=== PATIENT | female | born 1960 | race Caucasian/White ===

== ENCOUNTER 2017-06-07 20:00 | Outpatient (CLI) | payer BC | END 2017-06-07 20:01 | disposition home or self-care (01) | LOC: SLEEPLAB 20:00 | PROVIDERS: ATTEND Family Medicine | DX: G47.33 Obstructive sleep apnea (adult) (pediatric) (principal); E66.9 Obesity, unspecified | CPT/HCPCS: 95806 ==

== ENCOUNTER 2019-11-21 12:32 | Outpatient (CLI) | payer BC ==
--- NOTE | 2019-11-21 14:04 | RAD ---
LEFT ANKLE 3 VIEWS: Date: 11/21/2019 HISTORY: Pain in left lower leg and left ankle. FINDINGS/IMPRESSION: Soft tissue swelling is present. There are postop changes and metallic hardware in the distal tibia a nd fibula, in good position and alignment. No acute fracture or dislocation seen. Degenerative change s are present. A plantar calcaneal spur is noted. POS: [facility]
--- NOTE | 2019-11-21 14:05 | RAD ---
LEFT TIBIA AND FIBULA 2 VIEWS: Date: 11/21/2019 HISTORY: Left lower extremity pain. FINDINGS: Knee prosthesis is noted. Components appear adequately positioned and alignment. No evidence of loose douglas. There is a cortical fracture involving the proximal diaphysis of the left fibula without displacement . Prior internal fixation of the distal tibia and fibula. Plate and screws transfix the distal fibula a t the lateral malleolus. Pins transfix the medial malleolus. Degenerative changes at the ankle are pr ominent. IMPRESSION: 1. Evidence of acute fracture involving the proximal diaphysis of the left fibula. 2. Postoperative changes of the tibia and fibula as described. Dr. Pollard is being paged for notification of this finding. CODE CR.
== END 2019-11-21 12:33 | disposition home or self-care (01) ==
LOC: SCSRAD 12:32
PROVIDERS: ATTEND Family Medicine
DX: M79.622 Pain in left upper arm (principal); S89.202A Unspecified physeal fracture of upper end of left fibula, initial encounter for closed fracture; Z98.890 Other specified postprocedural states; M79.89 Other specified soft tissue disorders; M19.072 Primary osteoarthritis, left ankle and foot; M77.32 Calcaneal spur, left foot

== ENCOUNTER 2020-12-13 05:50 | Day surgery (SDC) | payer BC ==
[2020-12-12 10:58] VITALS: BMI 46.3
[2020-12-13] MEDS ORDERED: Lidocaine 1% PF 5 ML VIAL ONE (08:29)
[2020-12-13] MEDS ORDERED: PROPOFOL 200 MG/20 ML VIAL ONE (08:29)
== END 2020-12-13 09:50 | disposition home or self-care (01) ==
LOC: SDC 05:50
PROVIDERS: ATTEND Internal Medicine Gastroenterology
PROC: 0DBK8ZX Excision of Ascending Colon, Via Natural or Artificial Opening Endoscopic, Diagnostic (ICD-10-PCS; principal; 2020-12-13)
PROC: 0DBP8ZX Excision of Rectum, Via Natural or Artificial Opening Endoscopic, Diagnostic (ICD-10-PCS; principal; 2020-12-13)
PROC: 0DBN8ZX Excision of Sigmoid Colon, Via Natural or Artificial Opening Endoscopic, Diagnostic (ICD-10-PCS; principal; 2020-12-13)
DX: Z12.11 Encounter for screening for malignant neoplasm of colon (principal); D12.2 Benign neoplasm of ascending colon; D12.5 Benign neoplasm of sigmoid colon; K62.1 Rectal polyp; I10 Essential (primary) hypertension; F17.210 Nicotine dependence, cigarettes, uncomplicated; E66.9 Obesity, unspecified; Z68.42 Body mass index [BMI] 45.0-49.9, adult; Z90.49 Acquired absence of other specified parts of digestive tract; Z79.899 Other long term (current) drug therapy; Z87.19 Personal history of other diseases of the digestive system
CPT/HCPCS: 88305; J2704

== ENCOUNTER 2022-02-26 13:29 | Outpatient (CLI) | payer BC | END 2022-02-26 13:30 | disposition home or self-care (01) | LOC: SCSMRI 13:29 | PROVIDERS: ATTEND Family Medicine | DX: M47.26 Other spondylosis with radiculopathy, lumbar region (principal); M47.817 Spondylosis without myelopathy or radiculopathy, lumbosacral region; M47.814 Spondylosis without myelopathy or radiculopathy, thoracic region; M54.50 Low back pain, unspecified; M47.22 Other spondylosis with radiculopathy, cervical region; M47.813 Spondylosis without myelopathy or radiculopathy, cervicothoracic region; E04.2 Nontoxic multinodular goiter | CPT/HCPCS: 72141; 72148 ==

== ENCOUNTER → 2022-05-12 | Day surgery (SDC) | payer BC ==
[2022-05-11 10:54] VITALS: BMI 46.3
[~2022-05-12] MED LIST: Lidocaine 2% PF 5 ML VIAL ONE; Sodium Bicarbonate 2.5 MEQ/5 ML VIAL ONE
[2022-05-12 13:10] VITALS: BP 149/81; TEMP 98.6
== END | disposition home or self-care (01) ==
LOC: ULT 12:22
PROVIDERS: ATTEND Specialist
PROC: 0G9G3ZX Drainage of Left Thyroid Gland Lobe, Percutaneous Approach, Diagnostic (ICD-10-PCS; principal; 2022-05-12)
DX: E04.1 Nontoxic single thyroid nodule (principal); I10 Essential (primary) hypertension; M19.90 Unspecified osteoarthritis, unspecified site; F17.200 Nicotine dependence, unspecified, uncomplicated; Z79.899 Other long term (current) drug therapy
CPT/HCPCS: 10005; 88173; J2001

== ENCOUNTER 2023-08-13 09:08 | Outpatient (CLI) | payer BC | END 2023-08-13 09:09 | disposition home or self-care (01) | LOC: SCSRAD 09:08 | PROVIDERS: ATTEND Family Medicine | DX: R05.3 Chronic cough (principal) | CPT/HCPCS: 71046 ==

== ENCOUNTER 2024-07-13 14:15 | Outpatient (CLI) | payer MEDICARE, OTHER | END 2024-07-13 14:16 | disposition home or self-care (01) | LOC: SCSRAD 14:15 | PROVIDERS: ATTEND Family Medicine | DX: J44.9 Chronic obstructive pulmonary disease, unspecified (principal); J40 Bronchitis, not specified as acute or chronic | CPT/HCPCS: 71046 ==

== ENCOUNTER 2025-02-08 15:13 | Outpatient (CLI) | payer MEDICARE | END 2025-02-08 15:14 | disposition home or self-care (01) | LOC: SCSRAD 15:13 | PROVIDERS: ATTEND Family Medicine | DX: M79.672 Pain in left foot (principal); M25.472 Effusion, left ankle; M19.072 Primary osteoarthritis, left ankle and foot; Z98.890 Other specified postprocedural states ==

== ENCOUNTER 2025-03-22 08:45 | Outpatient (CLI) | payer MEDICARE ==
[2025-03-22 09:45] LABS: #Basophils 0.07 10x3/uL (0.0-0.2); #Eosinophils 0.09 10x3/uL (0.0-0.7); #Monocytes 0.83 10x3/uL (0.11-0.59); #Neutrophils 8.56 10x3/uL (1.40-6.50); %Basophils 0.6 % (0.0-1.0); %Eosinophils 0.7 % (0.0-10.0); %Lymphocytes 23.9 % (21.0-51.0); %Monocytes 6.5 % (0.0-10.0); %Neutrophils 67.4 % (42.0-75.0); Hematocrit 40.2 % (36.0-47.0); Hemoglobin 12.7 g/dL (12.0-16.0); Mean Corpuscular Hemoglobin 31.4 pg (27.0-31.0); Mean Corpuscular Volume 99.3 fL (78.0-98.0); Platelet Count 298 10x3/uL (130-400); Red Blood Cell (RBC) Count 4.05 mill/uL (4.20-5.40); White Blood Cell (WBC) Count 12.70 10x3/uL (4.8-10.8)
[2025-03-22 10:05] LABS: Anion Gap 18 mmol/L (10-20); BUN (Urea Nitrogen) 19 mg/dL (9.8-20.1); Calc. Creatinine Clearance 0 mL/min (70-130); Calcium 9.7 mg/dL (7.8-10.44); Carbon Dioxide 26 mmol/L (23-31); Chloride 101 mmol/L (98-107); Glucose 107 mg/dL (80-115); Potassium 4.2 mmol/L (3.5-5.1); Sodium 141 mmol/L (136-145)
== END 2025-03-22 08:46 | disposition home or self-care (01) ==
LOC: LABBT 08:45
PROVIDERS: ATTEND Orthopaedic Surgery
DX: Z01.818 Encounter for other preprocedural examination (principal); G56.01 Carpal tunnel syndrome, right upper limb
CPT/HCPCS: 80048; 85025; 93005; 93010

== ENCOUNTER 2025-03-26 06:39 | Day surgery (SDC) | payer MEDICARE ==
[2025-03-22 08:48] VITALS: BMI 46.3
[2025-03-26] MEDS ORDERED: Lidocaine 1% PF 5 ML VIAL ONE (08:13)
[2025-03-26] MEDS ORDERED: PROPOFOL 20 ML ONE (08:13)
[2025-03-26] MEDS ORDERED: fentaNYL PF 100 MCG/2 ML SYRINGE ONE (08:13)
[2025-03-26] MEDS ORDERED: Ondansetron PF 4 MG/2 ML Vial ONE (08:13)
[2025-03-26] MEDS ORDERED: CEFAZOLIN 2 GM VIAL ONE (08:19)
[2025-03-26] MEDS ORDERED: Glycopyrrolate 0.2 MG/ML 5 ML SYRINGE ONE (08:41)
== END 2025-03-26 10:21 | disposition home or self-care (01) ==
LOC: SDC 06:39
PROVIDERS: ATTEND Orthopaedic Surgery
PROC: 01N50ZZ Release Median Nerve, Open Approach (ICD-10-PCS; principal; 2025-03-26)
DX: G56.01 Carpal tunnel syndrome, right upper limb (principal); M18.0 Bilateral primary osteoarthritis of first carpometacarpal joints; M19.041 Primary osteoarthritis, right hand; M19.042 Primary osteoarthritis, left hand; I10 Essential (primary) hypertension; E78.5 Hyperlipidemia, unspecified
CPT/HCPCS: 29848; J0665; J1100; J2704; A6223